=== PATIENT | male | born 1990 ===

== ENCOUNTER 2021-05-25 04:46 | Emergency (ER) | payer SELFPAY ==
[2021-05-25 05:06] VITALS: BP 150/88
--- NOTE | 2021-05-25 05:43 | XRay Report ---
CHEST 2 VIEWS INDICATION / CLINICAL INFORMATION: CHEST PAIN. COMPARISON: None available. FINDINGS: SUPPORT DEVICES: None. HEART / MEDIASTINUM: No significant abnormality. LUNGS / PLEURA: No significant pulmonary or pleural abnormality. No pneumothorax. ADDITIONAL FINDINGS: No significant additional findings. IMPRESSION: 1. No acute findings. Signer Name: Rosanne Blanco MD Signed: 05/25/2021 5:39 AM Workstation Name: [id number]
--- NOTE | 2021-05-25 10:23 | Emergency Department Report ---
ED Chest Pain HPI - General Chief Complaint: Chest Pain Stated Complaint: CHEST PAIN/MIKY Time Seen by Provider: 05/25/21 10:16 Source: patient Mode of arrival: Ambulatory Limitations: No Limitations - History of Present Illness Initial Comments: 30-year-old male with no past medical history and no known family history of CAD presents to the emergency department for evaluation of chest pain started early this morning. He states that he was just sitting when the pain started, and he felt like his heart was racing out of his chest along with some shortness of breath. He states that the chest pain did not last long but he continued to be short of breath for a while. He states that the pain was mostly to the left side but then radiated to the right side in his lower chest area. He denies dizziness, nausea, diaphoresis. He states the pain at its worst is 5 out of 10. He states that he has had the same type of pain and shortness of b reath 3 times in the last few weeks. MD Complaint: chest pain -: Sudden, hour(s) Onset: during rest Pain Location: substernal Pain Radiation: none Severity: severe Quality: pressure Consistency: constant Worsens With: nothing re: dyspnea. denies: nausea, vomting, diaphoresis, sense of impending doom Other Symptoms: denies: cough, fever, leg swelling, palpitations Treatments Prior to Arrival: none Aspirin use within the Past 7 Days: (0) No - Related Data Allergies Allergy/AdvReac Type Severity Reaction Status Date / Time No Known Allergies Allergy Verified 05/25/21 05:10 Heart Score - HEART Score History: Slightly suspicious EKG: Normal Age: < 45 Risk factors: 1-2 risk factors Troponin: < normal limit HEART Score: 1 - EKG Read Time Time EKG Completed: 04:58 EKG Read Time: 05:04 - Critical Actions Critical Actions: 0-3 pts:0.9-1.7%risk of adverse cardiac event.Candidate for discharge ED Review of Systems ROS: Stated complaint: CHEST PAIN/MIKY Other details as noted in HPI Comment: All other systems reviewed and negative Constitutional: denies: chills, fever Respiratory: shortness of breath. denies: cough Cardiovascular: chest pain, palpitations. denies: dyspnea on exertion, orthopnea, edema, syncope, paroxysmal nocturnal dyspnea Gastrointestinal: denies: abdominal pain, nausea, vomiting Musculoskeletal: denies: back pain ED Physical Exam - General Limitations: No Limitations General appearance: alert, in no apparent distress - Head Head exam: Present: atraumatic, normocephalic - Eye Eye exam: Present: normal appearance. Absent: conjunctival injection - Neck Neck exam: Present: normal inspection - Respiratory Respiratory exam: Present: normal lung sounds bilaterally. Absent: respiratory distress, wheezes, rales, rhonchi, stridor, chest wall tenderness, accessory muscle use - Cardiovascular Cardiovascular Exam: Present: normal rhythm, tachycardia, normal heart sounds - GI/Abdominal GI/Abdominal exam: Present: soft, distended, normal bowel sounds - Extremities Exam Extremities exam: Present: normal inspection. Absent: normal capillary refill - Back Exam Back exam: Present: normal inspection. Absent: CVA tenderness (R), CVA tenderness (L), paraspinal tenderness, vertebral tenderness - Neurological Exam Neurological exam: Present: alert, oriented X3 - Psychiatric Psychiatric exam: Present: normal affect, normal mood - Skin Skin exam: Present: warm, dry, intact, normal color ED Course Vital Signs 05/25/21 04:50 Temperature 97.7 F Pulse Rate 104 H Respiratory 18 Rate Blood Pressure 150/88 O2 Sat by Pulse 98 Oximetry - Reevaluation(s) Reevaluation #1: 05/25/21 12:16 Chest pain resolved ED Medical Decision Making - Lab Data Result diagrams: 05/25/21 10:37 05/25/21 10:37 - EKG Data Interpretation: no acute changes - Radiology Data Radiology results: report reviewed, image reviewed Chest xray: Impression: 1. no acute findings noted. - Medical Decision Making 29-year-old black male with a past medical history of asthma presents to the emergency department for evaluation of 3-day history of worsening cough, congestion, wheezing, and intermittent shortness of breath. He denies fever or chills. He states that he has been wheezing a lot but has ran out of his inhaler and albuterol nebulizer solution for his home machine. He denies chest pain, nausea, vomiting. EKG, troponin, TSH, and cxr wnl. Patient was chest pain at time of initial exam stating that pain is intermittent. Patient was not found to review plan of care. Critical care attestation.: If time is entered above; I have spent that time in minutes in the direct care of this critically ill patient, excluding procedure time. ED Disposition Clinical Impression: Chest pain Qualifiers: Chest pain type: unspecified Qualified Code(s): R07.9 - Chest pain, unspecified Disposition: 01 HOME / SELF CARE / HOMELESS Is pt being admited?: No Does the pt Need Aspirin: No Condition: Stable Instructions: Nonspecific Chest Pain, Adult, [id number] Additional Instructions: Follow-up with cardiology for further evaluation and management. Referrals: LIZABETH YING MD [Primary Care Provider] - 3-5 Days ED MORALES MD [Staff Physician] - 3-5 Days Time of Disposition: 12:17
[2021-05-25 11:32] LABS: Hematocrit 50.6 % (35.5-45.6); Hemoglobin 17.3 gm/dl (11.8-15.2); Mean Corpuscular HGB Conc 34 % (32-34); Mean Corpuscular Volume 92 fl (84-94); Platelet Count 208 K/mm3 (140-440); Red Blood Count 5.48 M/mm3 (3.65-5.03)
[2021-05-25 11:42] LABS: Alanine Aminotransferase 10 units/L (7-56); Albumin 4.9 g/dL (3.9-5); BUN/Creatinine Ratio 11; Blood Urea Nitrogen 11 mg/dL (9-20); Calcium 10.1 mg/dL (8.4-10.2); Hemolysis Index 20
--- NOTE | 2021-05-27 08:54 | Electrocardiograph Report ---
[facility] Test Date: 2021-05-25 Test Time: 04:58:52 Pat Name: NATTY SCHMID Department: Room: Gender: M [employer]: GARRY : 1990 Requested By: ED DOC Order Number: [id number] Reading MD: Anshu Kaminski Measurements Intervals [place] Rate: 125 P: 86 TN: 140 QRS: 88 QRSD: 85 T: 69 QT: 309 QTc: 446 Interpretive Statements Sinus tachycardia No previous ECG available for comparison Electronically Signed On 05-27-2021 8:53:53 EDT by Anshu Kaminski
== END 2021-05-25 13:16 | disposition home or self-care (01) ==
LOC: ED 04:46
DX: R07.89 Other chest pain (principal); R94.6 Abnormal results of thyroid function studies
CPT/HCPCS: 36415; 71046; 80053; 84443; 84484; 85027; 93005; 99283